=== PATIENT | male | born 1950 | race Caucasian/White ===

== ENCOUNTER 2017-03-15 14:16 | Emergency (ER) | payer BC ==
[~2017-03-15] VITALS: Ht 188 cm; Wt 100.0 kg
[~2017-03-15 14:16] MED LIST: AMLODIPINE10 MG PO; ASPIRIN LOW DOS81 M1 PO; BACTROBAN21 EX; BP MEDICATION; BRILINTA90 MG PO; CAPTOPRIL25 MG PO; CIPRO500 MG OR; DIABETIC MED; EFFIENT10 MG PO; FAMOTIDINE20 M1 PO; FLONASE NASAL50 MCG; GABAPENTIN300 MG PO; GLIPIZIDE10 M2 PO; JANUVIA100 MG OR; LIPITOR80 M1 PO; LIPITOR80 MG PO; LISINOPRIL10 MG PO; LORTAB 5 OR; METFORMIN1000 MG PO; METO50TA52 PO; METOPROL TAR50 MG PO; NEURONTIN300 MG PO; PLAVIX75 MG OR
[2017-03-15 14:37] LABS: HEMATOCRIT 46.8 % (39.0-50.0); HEMOGLOBIN 16.4 g/dl (14.0-18.0); IMMATURE GRANULOCYTES 0.3 % (0.0-1.0); MEAN CELL VOLUME 89.1 fL CALC (80.0-100.0); MEAN CORPUSCULAR HGB 31.2 pG CALC (26.0-32.0); NEUT# 8.76 thou/uL (1.82-7.42); RED BLOOD COUNT 5.25 mill/uL (4.70-6.10); RED CELL DISTRI WIDTH 12.9 % (11.5-15.5)
[2017-03-15 15:05] LABS: ALBUMIN 4.3 g/dL (3.2-5.0); ALKALINE PHOSPHATASE 103 u/l (38-126); ANION GAP 20 (6-22 (CALC)); BILIRUBIN, TOTAL 0.7 mg/dL (0.0-1.4); BUN 6 mg/dL (8-23); BUN/CREATININE RATIO 8 (12-20 (CALC)); CARBON DIOXIDE 21 mmol/l (22-30); CHLORIDE 103 mmol/l (95-108); CREATININE 0.7 mg/dL (0.7-1.3); GFR > 60 ML/MIN (>=60 (CALC)); GFR FOR AFR.AMER. > 60 ML/MIN (>=60 (CALC)); GLUCOSE 429 mg/dL (82-115); POTASSIUM 3.9 mmol/l (3.5-5.1); SGOT/AST 42 u/l (19-48); SGPT/ALT 27 u/l (11-66); SODIUM 140 mmol/l (137-146); TOTAL PROTEIN 7.1 g/dL (6.3-8.2)
[2017-03-15 15:15] LABS: MYOGLOBIN 155 ng/mL (0 - 121)
[2017-03-15 15:17] VITALS: BP 145/97
== END 2017-03-15 15:18 | disposition short-term general hospital (02) | DRG 282 ==
LOC: ED 14:16
PROVIDERS: Emergency Medicine
DX: I21.19 ST elevation (STEMI) myocardial infarction involving other coronary artery of inferior wall (principal); I25.2 Old myocardial infarction; R11.0 Nausea; R06.02 Shortness of breath; R61 Generalized hyperhidrosis; Z95.5 Presence of coronary angioplasty implant and graft
CPT/HCPCS: J1650

== ENCOUNTER 2017-03-28 10:11 | Emergency (ER) | payer BC ==
[~2017-03-28] VITALS: Ht 188 cm; Wt 75.0 kg
[2017-03-28] MEDS ORDERED: ATORVASTATIN CA80 MG PO (10:53)
[2017-03-28] MEDS ORDERED: LASIX 20 MG TAB20 MG PO (10:54)
[2017-03-28] MEDS ORDERED: BRILINTA90 MG PO (10:54)
[2017-03-28] MEDS ORDERED: ALDACTONE25 MG PO (10:54)
[2017-03-28] MEDS ORDERED: COREG3.125 MG PO (10:55)
[2017-03-28] MEDS ORDERED: METFORMIN500 M2 PO (10:56)
[2017-03-28 11:21] LABS: INFLUENZA A POSITIVE (NONE DETECT); INFLUENZA B NONE DETECTED (NONE DETECT)
[2017-03-28] MEDS ORDERED: TAM75CAP PO (11:38)
[2017-03-28] MEDS ORDERED: AMOXICILLIN500 MG PO (11:38)
[2017-03-28 11:45] VITALS: BP 116/67
== END 2017-03-28 11:45 | disposition home or self-care (01) | DRG 153 ==
LOC: ED 10:11
PROVIDERS: Emergency Medicine
DX: J11.1 Influenza due to unidentified influenza virus with other respiratory manifestations (principal); J02.0 Streptococcal pharyngitis; R05 Cough; R50.9 Fever, unspecified

== ENCOUNTER 2019-06-06 | Observation (INO) | payer MEDICARE ==
[~2019-06-06] MED LIST changes: +ALDACTONE25 MG PO; +AMOXICILLIN500 MG PO; +ATORVASTATIN CA80 MG PO; +COREG3.125 MG PO; +LASIX 20 MG TAB20 MG PO; +METFORMIN500 M2 PO; +TAM75CAP PO
--- NOTE | 2019-06-06 18:42 | NUR ---
PT TO ROOM WITH STEADY GAIT- PT REFUSED WC
--- NOTE | 2019-06-06 19:00 | NUR ---
IN ROOM INTRODUCED SELF TO PT. NO C/O AT THIS TIME. SON AT SIDE.
[2019-06-06 19:54] LABS: HEMATOCRIT 40.6 % (39.0-50.0); HEMOGLOBIN 13.2 g/dl (14.0-18.0); IMMATURE GRANULOCYTES 0.3 % (0.0-5.0); MEAN CORPUSCULAR HGB 27.6 pG CALC (26.0-32.0); MEAN CORPUSCULAR HGB CONC 32.5 g/dL CAL (32.0-36.0); NEUT# 6.72 thou/uL (1.82-7.42); RED BLOOD COUNT 4.78 mill/uL (4.70-6.10); RED CELL DISTRI WIDTH 13.8 % (11.5-15.5)
--- NOTE | 2019-06-06 20:00 | NUR ---
RESTING ON STRETCHER, OCCAS. COUGH NOTED.
[2019-06-06 20:19] LABS: ALBUMIN 3.8 g/dL (3.2-5.0); ALKALINE PHOSPHATASE 74 u/l (38-126); ANION GAP 13 (6-22 (CALC)); BUN 13 mg/dL (8-23); BUN/CREATININE RATIO 15 (12-20 (CALC)); CARBON DIOXIDE 27 mmol/l (22-30); CHLORIDE 99 mmol/l (95-108); CREATININE 0.8 mg/dL (0.7-1.3); GFR > 60 ML/MIN (>=60 (CALC)); GFR FOR AFR.AMER. > 60 ML/MIN (>=60 (CALC)); POTASSIUM 4.6 mmol/l (3.5-5.1); SGOT/AST 28 u/l (19-48); SODIUM 135 mmol/l (137-146); TOTAL PROTEIN 6.8 g/dL (6.3-8.2)
[2019-06-06 20:20] LABS: BILIRUBIN, TOTAL 1.3 mg/dL (0.0-1.4)
[2019-06-06 20:22] LABS: MEAN CELL VOLUME 84.9 fL CALC (80.0-100.0)
[2019-06-06 20:31] LABS: MYOGLOBIN 66 ng/mL (0 - 121)
--- NOTE | 2019-06-06 20:45 | NUR ---
IV ABT. STARTED PER MD ORDER.
[2019-06-06 20:57] LABS: URINE BLOOD DIPSTICK NEGATIVE (NEGATIVE); URINE COLOR YELLOW; URINE GLUCOSE - DIPSTICK 500 mg/dL (NEGATIVE); URINE KETONE TRACE mg/dL (NEGATIVE); URINE LEUK ESTERASE NEGATIVE (NEGATIVE); URINE NITRITE - DIPSTICK NEGATIVE (Negative); URINE PROTEIN - DIPSTICK TRACE mg/dL (NEG-TRACE); URINE SPECIFIC GRAVITY >=1.030
[2019-06-06 21:00] LABS: URINE BILIRUBIN - DIPSTICK SMALL (NEGATIVE)
--- NOTE | 2019-06-06 21:00 | NUR ---
MD IN ROOM TO DISCUSS CLINICAL FINDINGS WITH PT. AND TO ALSO MAKE HIM AWARE OF ADMISSION. VERBALIZED UNDERSTANDING.
--- NOTE | 2019-06-06 22:30 | NUR ---
Admission Note Report Given to: RAVEN HE Transported by: Wheelchair X Stretcher Transported with: X Nurse Transporter X Patent IV X O2 X Housekeeper Nanny Location: ICU X [facility]
--- NOTE | 2019-06-06 23:55 | NUR ---
TO [facility] FLOOR VIA STRETCHER, NO C/O.
[2019-06-07 00:05] VITALS: BP 150/95
--- NOTE | 2019-06-07 00:05 | NUR ---
PT ARRIVED VIA STRETCHER ACCOMPAINED BY ER STAFF. PT ALERT AND ORIENTED. NO APPARENT DISTRESS NOTED. PT DENIES ANY PAIN OR DISCOMFORT. IV SITE APPEARS HEALTHY. CABLEWAY OPERATOR IN PLACE. DISCUSSED POC. PT VERBALIZED UNDERSTANDING. PT ORIENTED TO ROOM AND CALL LIGHT SYSTEM. CALL LIGHT WITHIN REACH. WILL CONTINUE TO MONITOR.
[2019-06-07 02:20] VITALS: BP 146/90
--- NOTE | 2019-06-07 02:20 | NUR ---
PATIENT ARRIVED TO ICU VIA STRECHER FROM ER. REPORT GIVEN BY RAVEN HE. RESP EVEN AND UNLABORED. NO S/S OF DISTRESS NOTED. ORIENTED TO ROOM, CALL LIGHT, AND BED. FALL PRECATUION IN PLACE. PATIENT INFORMED TO CALL WITH ANY QUESTIONS OR CONCERNS. PLAN OF CARE DISCUSSED.
--- NOTE | 2019-06-07 04:00 | NUR ---
PT C/O SOB AND O2 SAT 85%-88%. PATIENT PLACED ON 2 L O2.
[2019-06-07 04:35] VITALS: BP 147/90
[2019-06-07 08:00] VITALS: BP 125/77
[2019-06-07 10:00] VITALS: BP 142/80
[2019-06-07 12:00] VITALS: BP 133/83
--- NOTE | 2019-06-07 13:15 | NUR ---
RECIEVED DISCHARGE ORDERS. PT DRESSED WRITTEN EDUCATION GIVEN. REMINDED TO SEE PCP WITHIN A WK. SON AT BEDSIDE. PIV TO LAC REMOVED PT TOLERATED WELL. WHEELCHAIRED SAFELY OFF OF UNIT.
== END 2019-06-07 13:15 | disposition home or self-care (01) ==
PROVIDERS: Emergency Medicine; ADMIT Internal Medicine
DX: R07.9 Chest pain, unspecified (principal); I25.10 Atherosclerotic heart disease of native coronary artery without angina pectoris; I10 Essential (primary) hypertension; E11.9 Type 2 diabetes mellitus without complications; E78.5 Hyperlipidemia, unspecified; I25.2 Old myocardial infarction; Z95.810 Presence of automatic (implantable) cardiac defibrillator; Z95.5 Presence of coronary angioplasty implant and graft; Z79.84 Long term (current) use of oral hypoglycemic drugs

== ENCOUNTER 2019-11-19 15:03 | Emergency (ER) | payer MEDICARE ==
[~2019-11-19] VITALS: Ht 188 cm; Wt 111.3 kg
[2019-11-19] MEDS ORDERED: BACTRIM DS1 TAB PO (15:58)
[2019-11-19] MEDS ORDERED: CEPHALEXIN500 M1 PO (15:58)
[2019-11-19 16:25] VITALS: BP 102/61
== END 2019-11-19 16:25 | disposition home or self-care (01) ==
LOC: ED 15:03
PROC: 0H9JXZZ Drainage of Left Upper Leg Skin, External Approach (ICD-10-PCS; principal; 2019-11-19)
DX: L02.416 Cutaneous abscess of left lower limb (principal); L03.116 Cellulitis of left lower limb; I10 Essential (primary) hypertension; E11.9 Type 2 diabetes mellitus without complications; F17.200 Nicotine dependence, unspecified, uncomplicated; Z95.1 Presence of aortocoronary bypass graft; Z95.810 Presence of automatic (implantable) cardiac defibrillator; Z79.84 Long term (current) use of oral hypoglycemic drugs

== ENCOUNTER 2019-11-21 09:45 | Emergency (ER) | payer MEDICARE ==
[~2019-11-21] VITALS: Ht 188 cm; Wt 100.0 kg
[~2019-11-21 09:45] MED LIST changes: +BACTRIM DS1 TAB PO; +CEPHALEXIN500 M1 PO
[2019-11-21 11:07] VITALS: BP 136/80
== END 2019-11-21 11:07 | disposition home or self-care (01) ==
LOC: ED 09:45
DX: Z48.01 Encounter for change or removal of surgical wound dressing (principal); S81.011A Laceration without foreign body, right knee, initial encounter; S51.011A Laceration without foreign body of right elbow, initial encounter; I10 Essential (primary) hypertension; E11.9 Type 2 diabetes mellitus without complications; F17.200 Nicotine dependence, unspecified, uncomplicated; W01.0XXA Fall on same level from slipping, tripping and stumbling without subsequent striking against object, initial encounter; Y92.480 Sidewalk as the place of occurrence of the external cause; Z95.1 Presence of aortocoronary bypass graft; Z95.810 Presence of automatic (implantable) cardiac defibrillator; Z79.84 Long term (current) use of oral hypoglycemic drugs

== ENCOUNTER 2020-11-14 11:48 | Emergency (ER) | payer MEDICARE ==
[~2020-11-14] VITALS: Ht 188 cm; Wt 90.0 kg
[2020-11-14 20:54] VITALS: BP 133/68
== END 2020-11-14 20:56 | disposition short-term general hospital (02) ==
LOC: ED 11:48
DX: S32.591A Other specified fracture of right pubis, initial encounter for closed fracture (principal); S32.010A Wedge compression fracture of first lumbar vertebra, initial encounter for closed fracture; S22.080A Wedge compression fracture of T11-T12 vertebra, initial encounter for closed fracture; I10 Essential (primary) hypertension; I25.10 Atherosclerotic heart disease of native coronary artery without angina pectoris; E78.00 Pure hypercholesterolemia, unspecified; F17.200 Nicotine dependence, unspecified, uncomplicated; W18.2XXA Fall in (into) shower or empty bathtub, initial encounter; Y93.E1 Activity, personal bathing and showering; Y92.002 Bathroom of unspecified non-institutional (private) residence as the place of occurrence of the external cause; Z79.84 Long term (current) use of oral hypoglycemic drugs; Z95.810 Presence of automatic (implantable) cardiac defibrillator; Z95.1 Presence of aortocoronary bypass graft; Z20.822 Contact with and (suspected) exposure to COVID-19

== ENCOUNTER 2021-05-07 09:34 | Emergency (ER) | payer MEDICARE ==
[~2021-05-07] VITALS: Ht 188 cm; Wt 122.3 kg
[2021-05-07 10:59] LABS: HEMATOCRIT 38.4 % (39.0-50.0); HEMOGLOBIN 11.8 g/dl (14.0-18.0); IMMATURE GRANULOCYTES 0.2 % (0.0-5.0); MEAN CELL VOLUME 87.7 fL CALC (80.0-100.0); MEAN CORPUSCULAR HGB 26.9 pG CALC (26.0-32.0); MEAN CORPUSCULAR HGB CONC 30.7 g/dL CAL (32.0-36.0); NEUT# 7.66 thou/uL (1.82-7.42); RED BLOOD COUNT 4.38 mill/uL (4.70-6.10); RED CELL DISTRI WIDTH 15.2 % (11.5-15.5)
[2021-05-07 11:02] LABS: ALBUMIN 3.7 g/dL (3.2-5.0); ALKALINE PHOSPHATASE 109 u/l (38-126); ANION GAP 17 (6-22 (CALC)); BUN 24 mg/dL (8-23); BUN/CREATININE RATIO 20 (12-20 (CALC)); CARBON DIOXIDE 26 mmol/l (22-30); CHLORIDE 103 mmol/l (95-108); CREATININE 1.2 mg/dL (0.7-1.3); GFR 60 ML/MIN (>=60 (CALC)); GFR FOR AFR.AMER. > 60 ML/MIN (>=60 (CALC)); LIPASE 52 u/l (23-300); POTASSIUM 4.7 mmol/l (3.5-5.1); SGOT/AST 16 u/l (19-48); SODIUM 141 mmol/l (137-146); TOTAL PROTEIN 6.8 g/dL (6.3-8.2)
[2021-05-07 11:05] LABS: BILIRUBIN, TOTAL 0.4 mg/dL (0.0-1.4)
[2021-05-07] MEDS ORDERED: CITRATE OF MEGNESIA PO (13:15)
[2021-05-07 13:50] VITALS: BP 142/91
== END 2021-05-07 13:50 | disposition home or self-care (01) ==
LOC: ED 09:34
PROVIDERS: Family Medicine
DX: K59.00 Constipation, unspecified (principal); I10 Essential (primary) hypertension; E11.9 Type 2 diabetes mellitus without complications; I25.10 Atherosclerotic heart disease of native coronary artery without angina pectoris; E78.00 Pure hypercholesterolemia, unspecified; F17.200 Nicotine dependence, unspecified, uncomplicated; Z95.810 Presence of automatic (implantable) cardiac defibrillator; Z95.1 Presence of aortocoronary bypass graft; Z79.891 Long term (current) use of opiate analgesic; Z79.84 Long term (current) use of oral hypoglycemic drugs

== ENCOUNTER 2021-08-02 13:24 | Observation (INO) | payer MEDICARE ==
[2021-08-02] VITALS (20 sets, daily range): BP systolic 108–155; BP diastolic 60–110
[~2021-08-02] VITALS: Ht 188 cm; Wt 111.0 kg
[~2021-08-02 13:24] MED LIST changes: +CITRATE OF MEGNESIA PO
--- NOTE | 2021-08-02 13:31 | NUR ---
PT BROUGHT TO ROOM VIA EMS STRETCHER. GA TRANSFERED BY STAFF
--- NOTE | 2021-08-02 13:35 | NUR ---
ACCUCHECK 258
[2021-08-02 14:12] LABS: IMMATURE GRANULOCYTES 0.3 % (0.0-5.0); MEAN CELL VOLUME 87.3 fL CALC (80.0-100.0); MEAN CORPUSCULAR HGB 27.8 pG CALC (26.0-32.0); MEAN CORPUSCULAR HGB CONC 31.9 g/dL CAL (32.0-36.0); NEUT# 14.3 thou/uL (1.82-7.42); RED BLOOD COUNT 5.1 mill/uL (4.70-6.10); RED CELL DISTRI WIDTH 15.5 % (11.5-15.5)
[2021-08-02 14:19] LABS: CREATININE 1.5 mg/dL (0.7-1.3); POTASSIUM 4.6 mmol/l (3.5-5.1); TOTAL PROTEIN 7.4 g/dL (6.3-8.2)
--- NOTE | 2021-08-02 14:30 | NUR ---
Reassessment of patient completed. No distress noted.
[2021-08-02 14:33] LABS: BILIRUBIN, TOTAL 0.6 mg/dL (0.0-1.4)
[2021-08-02 14:37] LABS: HEMATOCRIT 44.5 % (39.0-50.0); HEMOGLOBIN 14.2 g/dl (14.0-18.0)
--- NOTE | 2021-08-02 15:51 | NUR ---
Reassessment of patient completed. No distress noted.
--- NOTE | 2021-08-02 16:50 | NUR ---
Reassessment of patient completed. No distress noted.
[2021-08-02 16:54] LABS: URINE BILIRUBIN - DIPSTICK NEGATIVE (NEGATIVE); URINE BLOOD DIPSTICK NEGATIVE (NEGATIVE); URINE COLOR YELLOW; URINE GLUCOSE - DIPSTICK >=1000 mg/dL (NEGATIVE); URINE KETONE 15 mg/dL (NEGATIVE); URINE LEUK ESTERASE NEGATIVE (NEGATIVE); URINE PROTEIN - DIPSTICK NEGATIVE (NEG-TRACE); URINE UROBILINOGEN - DIPSTICK 0.2 E.U./dL (0.2)
[2021-08-02 16:55] LABS: URINE NITRITE - DIPSTICK NEGATIVE (Negative)
--- NOTE | 2021-08-02 17:50 | NUR ---
Reassessment of patient completed. No distress noted.
--- NOTE | 2021-08-02 18:22 | NUR ---
Reassessment of patient completed. No distress noted.
--- NOTE | 2021-08-02 18:28 | NUR ---
GLUCOSE 130
--- NOTE | 2021-08-02 18:43 | NUR ---
BED 268 ASSIGNED TO PATIENT AND SBAR FAXED UP AT 1620. PATIENT TO BE TAKEN UPSTAIRS AFTER 1650 PER POLICY.
--- NOTE | 2021-08-02 20:27 | NUR ---
PT TRANSPORTED TO [facility] UNIT FOR CONTINUATION OF CARE. BEDSIDE REPORT GIVEN TO RECEIVING SENIOR ECOLOGIST. OPPORTUNITY GIVEN FOR QUESTIONS. PT BELONGINGS SHEET COMPLETED AND PROVIDED TO NURSE.
--- NOTE | 2021-08-02 20:40 | NUR ---
RECEIVED BEDSIDE REPORT FROM ER NURSE. PT ORIENTED TO ROOM; PT A&O X3. EVEN AND UNLABORED RESPIRATIONS; CLEAR LUNG SOUNDS. TELEMETRY IN PLACE. ACTIVE BOWEL SOUNDS X4 QUADRANTS. BAND AID ON RIGHT HALLUX NOTED; CDI, PT STATES IT WAS PLACE BY HOME HEALTH NURSE, PER VEGETABLE LOADER' ORDER. SAFETY PRECAUTIONS IN PLACE WITH CALL LIGHT IN REACH.
[2021-08-03 00:19] VITALS: BP 121/60
--- NOTE | 2021-08-03 00:40 | NUR ---
PT SLEEPING. NO DISTRESS OR PAIN NOTED. ADMINISTERED SCHEDULED ABX AT THIS TIME. TELEMETRY AND SAFETY PRECAUTIONS IN PLACE. CALL LIGHT WITHIN REACH.
[2021-08-03 04:27] VITALS: BP 118/54
--- NOTE | 2021-08-03 04:35 | NUR ---
PT SLEEPING. VS OBTAINED BY AIDE AT THIS TIME. NO DISTRESS OR PAIN NOTED. TELEMETRY IN PLACE WITH LAST READING PACED-60. SAFETY PRECAUTIONS IN PLACE WITH CALL LIGHT IN REACH.
[2021-08-03 05:52] LABS: MEAN CELL VOLUME 87.6 fL CALC (80.0-100.0); RED BLOOD COUNT 4.35 mill/uL (4.70-6.10); RED CELL DISTRI WIDTH 15.6 % (11.5-15.5)
[2021-08-03 06:16] LABS: HEMATOCRIT 38.1 % (39.0-50.0); HEMOGLOBIN 12.2 g/dl (14.0-18.0)
[2021-08-03 06:24] LABS: ANION GAP 14 (6-22 (CALC)); BUN 17 mg/dL (8-23); BUN/CREATININE RATIO 15 (12-20 (CALC)); CARBON DIOXIDE 21 mmol/l (22-30); CHLORIDE 106 mmol/l (95-108); CREATININE 1.1 mg/dL (0.7-1.3); GFR > 60 ML/MIN (>=60 (CALC)); GFR FOR AFR.AMER. > 60 ML/MIN (>=60 (CALC)); MAGNESIUM 1.8 mg/dL (1.6-2.3); SODIUM 137 mmol/l (137-146)
[2021-08-03] MEDS ORDERED: MUPIROCIN2 % TOP (07:27)
[2021-08-03] MEDS ORDERED: SANTYL250 UNIT/G TOP (07:28)
[2021-08-03] MEDS ORDERED: ELIQUIS5 MG PO (07:28)
[2021-08-03] MEDS ORDERED: OXYCODONE10 M1 PO (07:29)
[2021-08-03] MEDS ORDERED: BUMETANIDE1 MG PO (07:29)
[2021-08-03] MEDS ORDERED: JARDIANCE10 MG PO (07:29)
[2021-08-03] MEDS ORDERED: LISINOPRIL2.5 MG PO (07:30)
[2021-08-03] MEDS ORDERED: MIRTAZAPINE15 MG PO (07:30)
[2021-08-03 07:38] VITALS: BP 125/61
--- NOTE | 2021-08-03 09:00 | NUR ---
PT AWAKE, ALERT, ORIENTED X 3. LUNGS CLEAR, RA. NO COMPLAINT OF ABDOMINAL DISCOMFORT. PT IN COLD ROOM, UNDER BLANKETS. PT WAITS FOR SURGEON CONSULT TODAY.
[2021-08-03 10:31] VITALS: BP 103/54
--- NOTE | 2021-08-03 13:00 | NUR ---
PT SEEN BY DR FRY TODAY, IS UNABLE TO HAVE SURGERY WITHOUT CARDIOLOGY CLEARANCE. PT AT REST IN THE BED, NO DISTRESS.
[2021-08-03 15:09] VITALS: BP 110/65
--- NOTE | 2021-08-03 16:44 | NUR ---
PT UNABLE TO EAT MEAL PROVIDED, HAS NOT EATEN MUCH AT ALL TODAY, SAYING THAT HE JUST CANNOT. PT AT REST IN THE BED WITH EYES CLOSED DURING MUCH OF THE DAY.
[2021-08-03 18:41] VITALS: BP 121/59
--- NOTE | 2021-08-03 20:00 | NUR ---
NURSING ASSESMENT COMPLETED AT THIS TIME. PT IS A&O X3, ON RA, SKIN INTACT, AND HAS A 18G IN RAC. PT IS UP WITH ASSIST. PT HAS NO COMPLAINTS AT THIS TIME. WILL CONTINUE TO MONITOR.
--- NOTE | 2021-08-03 21:00 | NUR ---
PT IS RESTING IN BED WATCHING TV. PT HAS NO COMPLAINTS AT THIS TIME. BED IS LOWEST POSITION AND CALL LIGHT IS WITHIN REACH. WILL CONTINUE HOURLY ROUNDS.
--- NOTE | 2021-08-03 21:00 | NUR ---
PT IS RESTING IN BED WATCHING TV. PT DOES NOT HAVE ANY COMPLAINTS AT THIS TIME. BED IS IN LOWEST POSITION AND CALL LIGHT IS WITHIN REACH. PT ALSO HAS URINAL AT BEDSIDE. WILL CONTINUE HOURLY ROUNDS.
--- NOTE | 2021-08-03 23:00 | NUR ---
PT IS SLEEPING AT THIS TIME. PT HAS NO COMPLAINTS AND WILL CONTNUE HOURLY ROUNDS.
[2021-08-04 00:02] VITALS: BP 131/57
[2021-08-04 04:04] VITALS: BP 117/67
[2021-08-04 05:56] LABS: HEMATOCRIT 37.9 % (39.0-50.0); HEMOGLOBIN 12.6 g/dl (14.0-18.0); IMMATURE GRANULOCYTES 0.3 % (0.0-5.0); MEAN CELL VOLUME 85.2 fL CALC (80.0-100.0); MEAN CORPUSCULAR HGB 28.3 pG CALC (26.0-32.0); MEAN CORPUSCULAR HGB CONC 33.2 g/dL CAL (32.0-36.0); NEUT# 6.13 thou/uL (1.82-7.42); RED BLOOD COUNT 4.45 mill/uL (4.70-6.10); RED CELL DISTRI WIDTH 15.7 % (11.5-15.5)
[2021-08-04 06:21] LABS: ALKALINE PHOSPHATASE 91 u/l (38-126); BILIRUBIN, TOTAL 0.4 mg/dL (0.0-1.4); BUN 9 mg/dL (8-23); BUN/CREATININE RATIO 10 (12-20 (CALC)); CARBON DIOXIDE 21 mmol/l (22-30); CHLORIDE 107 mmol/l (95-108); CREATININE 0.9 mg/dL (0.7-1.3); GFR > 60 ML/MIN (>=60 (CALC)); GFR FOR AFR.AMER. > 60 ML/MIN (>=60 (CALC)); MAGNESIUM 1.8 mg/dL (1.6-2.3); SGOT/AST 16 u/l (19-48); SODIUM 140 mmol/l (137-146)
[2021-08-04 06:23] LABS: ANION GAP 16 (6-22 (CALC)); POTASSIUM 3.9 mmol/l (3.5-5.1)
[2021-08-04 06:24] LABS: ALBUMIN 3.1 g/dL (3.2-5.0); TOTAL PROTEIN 5.8 g/dL (6.3-8.2)
--- NOTE | 2021-08-04 07:00 | NUR ---
RECEIVE REPORT FROM KELLEY KIRKLAND.
[2021-08-04 08:07] VITALS: BP 117/67
[2021-08-04 11:15] VITALS: BP 134/69
[2021-08-04] MEDS ORDERED: METRONIDAZOLE500 MG PO (13:16)
[2021-08-04] MEDS ORDERED: CIPROFLOXACN500 MG PO (13:16)
== END 2021-08-04 13:57 ==
LOC: ED 13:24 → MS2 18:19
PROVIDERS: Emergency Medicine; Nurse Practitioner; ADMIT Internal Medicine; ATTEND Internal Medicine
DX: K80.20 Calculus of gallbladder without cholecystitis without obstruction (principal); K52.9 Noninfective gastroenteritis and colitis, unspecified; I10 Essential (primary) hypertension; E11.9 Type 2 diabetes mellitus without complications; I48.91 Unspecified atrial fibrillation; E87.2 Acidosis; E78.5 Hyperlipidemia, unspecified; K76.0 Fatty (change of) liver, not elsewhere classified; I25.10 Atherosclerotic heart disease of native coronary artery without angina pectoris; F17.200 Nicotine dependence, unspecified, uncomplicated; Z95.5 Presence of coronary angioplasty implant and graft; Z79.84 Long term (current) use of oral hypoglycemic drugs; Z95.1 Presence of aortocoronary bypass graft; Z95.810 Presence of automatic (implantable) cardiac defibrillator; Z79.01 Long term (current) use of anticoagulants; Z20.822 Contact with and (suspected) exposure to COVID-19
CPT/HCPCS: J1650; Q9967

== ENCOUNTER 2021-09-13 07:53 | Day surgery (SDC) | payer MEDICARE ==
[~2021-09-13 07:53] MED LIST changes: +ATORVASTATIN CA20 MG PO; +BUMETANIDE1 MG PO; +CARVEDILOL6.25 MG PO; +CIPROFLOXACN500 MG PO; +ELIQUIS5 MG PO; +JARDIANCE10 MG PO; +LISINOPRIL2.5 MG PO; +METRONIDAZOLE500 MG PO; +MIRTAZAPINE15 MG PO; +MUPIROCIN2 % TOP; +OXYCODONE10 M1 PO; +POT CHLORIDE10 ME5 PO; +SANTYL250 UNIT/G TOP
[2021-09-13] MEDS ORDERED: PERCOCET 5/325M1 TAB PO (10:08)
[2021-09-13 11:03] VITALS: BP 139/69
== END 2021-09-13 11:25 | disposition home or self-care (01) ==
LOC: ORM 07:53
PROVIDERS: ATTEND Surgery
PROC: 0FT44ZZ Resection of Gallbladder, Percutaneous Endoscopic Approach (ICD-10-PCS; principal; 2021-09-13)
DX: K80.10 Calculus of gallbladder with chronic cholecystitis without obstruction (principal); I10 Essential (primary) hypertension; E11.9 Type 2 diabetes mellitus without complications; Z95.1 Presence of aortocoronary bypass graft; Z95.0 Presence of cardiac pacemaker; Z79.84 Long term (current) use of oral hypoglycemic drugs; Z79.01 Long term (current) use of anticoagulants
CPT/HCPCS: J0131